=== PATIENT | female | born 1940 | race Caucasian/White ===

== ENCOUNTER → 2016-04-09 | Outpatient (CLI) | payer OTHER ==
[~2016-04-09] MED LIST: DEPO METHYLPREDNISOLONE 40 MG/ML SDV ONE; DEPO METHYLPREDNISOLONE 80 MG/ML SDV ONE; IOPAMIDOL (ISOVUE 370) 100 ML BTL IV ONE; LIDOCAINE 1% 30 ML SDV ONE; NA BICARBONATE 50 MEQ/50 ML VIAL ONE; ROPIVACAINE HCL 150 MG/30 ML INJ ONE
== END ==
LOC: FIMAGING 13:01
PROVIDERS: ATTEND Physician Assistant
PROC: 3E0U3BZ Introduction of Anesthetic Agent into Joints, Percutaneous Approach (ICD-10-PCS; principal; 2016-04-09)
PROC: 3E0U33Z Introduction of Anti-inflammatory into Joints, Percutaneous Approach (ICD-10-PCS; 2016-04-09)
DX: M25.552 Pain in left hip (principal)
CPT/HCPCS: 20610; 77002; J1020; J2795; Q9967

== ENCOUNTER → 2017-02-23 | Outpatient (CLI) | payer OTHER, MEDICARE | LOC: FIMAGING 10:53 | PROVIDERS: ATTEND Physician Assistant | DX: R22.32 Localized swelling, mass and lump, left upper limb (principal) | CPT/HCPCS: 78306; A9503 ==

== ENCOUNTER → 2017-08-09 | Outpatient (CLI) | payer OTHER, MEDICARE | LOC: BMCIMAGING 11:21 | PROVIDERS: ATTEND Internal Medicine Rheumatology | DX: M19.011 Primary osteoarthritis, right shoulder (principal); M19.012 Primary osteoarthritis, left shoulder ==